=== PATIENT | male | born 1930 ===

== ENCOUNTER 2016-12-17 16:43 | Emergency (ER) | payer SELFPAY ==
[~2016-12-17] VITALS: Ht 160 cm; Wt 65.9 kg
[2016-12-17 17:03] VITALS: Ht 160 cm; Wt 65.9 kg
== END 2016-12-17 18:20 | disposition left against medical advice (07) ==
LOC: E/R 16:43
DX: Z53.21 Procedure and treatment not carried out due to patient leaving prior to being seen by health care provider (principal)